=== PATIENT | male | born 1955 | race Caucasian/White ===

== ENCOUNTER 2017-03-02 06:23 | Day surgery (SDC) | payer MEDICAID ==
[~2017-03-02] VITALS: Ht 188 cm; Wt 83.0 kg
[2017-03-02 06:35] VITALS: BP 106/73
[2017-03-02 08:45] VITALS: BP 112/77
== END 2017-03-02 09:15 | disposition home or self-care (01) ==
LOC: GI 06:23 → OR 08:30 → GI 08:30
PROVIDERS: Internal Medicine Gastroenterology
PROC: 0DJD8ZZ Inspection of Lower Intestinal Tract, Via Natural or Artificial Opening Endoscopic (ICD-10-PCS; principal; 2017-03-02 08:30)
DX: Z12.11 Encounter for screening for malignant neoplasm of colon (principal); K64.8 Other hemorrhoids
CPT/HCPCS: 45378; J1200; J1610; J2250; J2310; J3010; J3490